=== PATIENT | female | born 2000 | race Caucasian/White ===

== ENCOUNTER 2024-12-31 14:26 | Outpatient (CLI) | payer OTHER, SELFPAY ==
--- NOTE | ~2024-12-31 | XR_ITS ---
EXAMINATION: XR knee RT 3V, 12/31/2024 14:35 CDT HISTORY: Q87.2 - Congenital malformation syndromes predominantly i... COMPARISON: No comparisons available. Findings: The patella appears dislocated laterally. No significant degenerative changes. Soft tissues unremarkable. Impression: Patellar dislocation Reviewed, dictated and finalized at location P. Impression: Patellar dislocation
--- NOTE | ~2024-12-31 | XR_ITS ---
EXAMINATION: XR knee LT 3V, 12/31/2024 14:35 CDT HISTORY: Q87.2 - Congenital malformation syndromes predominantly i... COMPARISON: No comparisons available. Findings: The patella appears dislocated laterally. No fracture. Small joint effusion noted. Soft tissues unremarkable. Impression: Dislocated patella. Reviewed, dictated and finalized at location P. Impression: Dislocated patella.
== END 2024-12-31 14:27 | disposition home or self-care (01) ==
PROVIDERS: PCP Nurse Practitioner Adult Health; Visit Provider Nurse Practitioner Adult Health
DX: Q87.2 Congenital malformation syndromes predominantly involving limbs (principal); S83.004A Unspecified dislocation of right patella, initial encounter; S83.005A Unspecified dislocation of left patella, initial encounter; X58.XXXA Exposure to other specified factors, initial encounter
CPT/HCPCS: 73562